=== PATIENT | female | born 2005 | race African-American/Black ===

== ENCOUNTER 2025-02-25 14:54 | Inpatient (IN) | payer MEDICAID, OTHER ==
[~2025-02-25] VITALS: Ht 170.2 cm; Wt 151.7 kg
[2025-02-25 15:32] LABS: COVID AG,FIA SOURCE NASAL SWAB
[2025-02-25 15:51] LABS: SARS-COV2 (COVID) ANTIGEN,FIA Negative (Negative)
[2025-02-25 17:38] LABS: PLATELET COUNT (AUTO) 264 K/uL (150-450); RED BLOOD CELL COUNT(AUTO) 4.88 MIL/uL (4.00-5.20); RED CELL DISTRIBUTION WIDTH 13.1 % (11.5-14.5); WHITE BLOOD COUNT (AUTO) 15.5 K/uL (4.5-11.0)
[2025-02-25 17:48] LABS: CALCIUM, TOTAL 8.9 mg/dL (8.8-10.5); CREATININE 0.98 mg/dL (0.60-1.30); GLOMERULAR FILTR. RATE CALC > 60 mL/min (>60); GLUCOSE,RANDOM 87 mg/dL (70-110); SODIUM SERUM 140 mmol/L (136-145); UREA NITROGEN, BLOOD 13 mg/dL (7-18)
[2025-02-25 21:44] LABS: PH,URINE DRUG SCREEN 5.5 (5.0-8.0)
[2025-02-25 21:51] LABS: ALCOHOL, URINE DRUG SCREEN NEGATIVE (NEGATIVE); AMPHET/METH SCREEN,URINE NEGATIVE (NEGATIVE); BARBITURATE SCREEN, URINE NEGATIVE (NEGATIVE); CANNABINOID SCREEN,URINE NEGATIVE (NEGATIVE); COCAINE SCREEN,URINE NEGATIVE (NEGATIVE); METHADONE SCREEN, URINE NEGATIVE (NEGATIVE)
[2025-02-25] MEDS ORDERED: ZOLPIDEM TARTRATE 10 MG TABLET PO PRN (22:30)
[2025-02-26 09:15] VITALS: O2SAT 97
[2025-02-26 15:52] VITALS: BP 124/67; PULSE 83; RESP 18; TEMP 98; O2SAT 98
[2025-02-26] MEDS ORDERED: BENZOCAINE/MENTHOL [CEPACOL] LOZENGE PO PRN (16:45)
[2025-02-26] MEDS ORDERED: PETROLATUM,WHITE 28 GM JELLY TP PRN (16:45)
[2025-02-26] MEDS ORDERED: IBUPROFEN 600 MG TABLET PO PRN (16:45)
[2025-02-26] MEDS ORDERED: LOPERAMIDE HCL 2 MG CAPSULE PO PRN (16:45)
[2025-02-26] MEDS ORDERED: DOCUSATE SODIUM 100 MG CAPSULE PO PRN (16:45)
[2025-02-26] MEDS ORDERED: BACITRACIN 28 GM OINTMENT TP PRN (16:45)
[2025-02-26] MEDS ORDERED: MAG HYDROX/ALUMINUM HYD/SIMETH ES 30 ML SUSPENSION UDCUP PO PRN (16:45)
[2025-02-26] MEDS ORDERED: ONDANSETRON 4 MG TABLET PO PRN (16:45)
[2025-02-26] MEDS ORDERED: OMEPRAZOLE 20 MG CAPSULE PO PRN (16:45)
[2025-02-26] MEDS ORDERED: ACETAMINOPHEN 325 MG TABLET PO PRN (16:45)
[2025-02-26] MEDS ORDERED: ALBUTEROL SULFATE HFA 90 MCG/PUFF 8 GM INHALER IH PRN (16:45)
[2025-02-26] MEDS ORDERED: MAGNESIUM HYDROXIDE SUSPENSION 30 ML UDCUP PO PRN (16:45)
[2025-02-26 20:07] VITALS: BP 123/73; PULSE 93; RESP 18; TEMP 98.2; O2SAT 100
[2025-02-27 08:17] VITALS: BP 160/93; PULSE 95; RESP 17; TEMP 98.4; O2SAT 99
[2025-02-27 08:51] LABS: PLATELET COUNT (AUTO) 233 K/uL (150-450); RED BLOOD CELL COUNT(AUTO) 4.83 MIL/uL (4.00-5.20); RED CELL DISTRIBUTION WIDTH 13.1 % (11.5-14.5); WHITE BLOOD COUNT (AUTO) 9.9 K/uL (4.5-11.0)
[2025-02-27 09:08] LABS: ASPARTATE AMINOTRANSFERASE 17 U/L (15-37); CALCIUM, TOTAL 8.7 mg/dL (8.8-10.5); CHOL/HDL RATIO 3.6 (3.9-5.7); CREATININE 0.90 mg/dL (0.60-1.30); GLOMERULAR FILTR. RATE CALC > 60 mL/min (>60); GLUCOSE,RANDOM 83 mg/dL (70-110); LDL CHOL (CALC.) 91 mg/dL (0-130); SODIUM SERUM 140 mmol/L (136-145); TOTAL PROTEIN, SERUM 6.9 g/dL (6.4-8.2); UREA NITROGEN, BLOOD 7 mg/dL (7-18)
[2025-02-27 09:20] LABS: APPEARANCE,URINE CLEAR (CLEAR); GLUCOSE, URINE (UA) NEGATIVE (NEGATIVE); LEUKOCYTE ESTERASE ,URINE NEGATIVE (NEGATIVE); NITRATE,URINE NEGATIVE (NEGATIVE); OCCULT BLOOD,URINE NEGATIVE (NEGATIVE); SPECIFIC GRAVITIY, URINE 1.015 (1.003-1.030)
[2025-02-27] MEDS: POTASSIUM CHLORIDE 20 MEQ ER TABLET PO ONE (09:58)
[2025-02-27 12:35] VITALS: BP 129/88; PULSE 99; RESP 18; O2SAT 99
[2025-02-27 20:08] VITALS: BP 139/79; PULSE 85; RESP 19; TEMP 97.9; O2SAT 99
[2025-02-28 03:07] LABS: HEPATITIS C AB (EIA) Non Reactive (Non Reactive)
[2025-02-28 08:19] VITALS: BP 116/86; PULSE 97; RESP 17; TEMP 98.1; O2SAT 99
== END 2025-02-28 16:18 | disposition home or self-care (01) | DRG 751 ==
LOC: EMS 15:05 → B2S 02-26 13:13
PROVIDERS: ADMIT Psychiatry & Neurology Psychiatry; ATTEND Psychiatry & Neurology Psychiatry
DX: F23 Brief psychotic disorder (principal); D72.829 Elevated white blood cell count, unspecified; F32.A Depression, unspecified; Z20.822 Contact with and (suspected) exposure to COVID-19; F41.9 Anxiety disorder, unspecified; G47.00 Insomnia, unspecified; E66.01 Morbid (severe) obesity due to excess calories
CPT/HCPCS: 80048; 80053; 80061; 80307; 81003; 83036; 84132; 84439; 84443; 84702; 84703; 85025; 86803; 87340; 96372; 99291; G0480